=== PATIENT | female | born 1960 ===

== ENCOUNTER → 2018-09-28 | Outpatient (CLI) | payer BC | LOC: WI 09:33 | PROVIDERS: ATTEND Nurse Practitioner Family | DX: Z12.31 Encounter for screening mammogram for malignant neoplasm of breast (principal) ==

== ENCOUNTER → 2018-10-18 | Outpatient (CLI) | payer BC ==
--- NOTE | 2018-10-18 10:15 | WOMENS IMAGING REPORT ---
EXAM DESCRIPTION: RIGHT DIAGNOSTIC MAMMO W/CAD; U/S BREAST UNILAT LIMITED COMPLETED DATE/TIME: 10/18/2018 9:12 am; 10/18/2018 9:53 am REASON FOR STUDY: R92.2 INCONCLUSIVE MAMMOGRAM; RT BREAST R92.2 R92.2 INCONCLUSIVE MAMMOGRAM COMPARISON: 06/28/2016, 09/28/2018 EXAM PARAMETERS: Cone compression exaggerated craniocaudal and mediolateral oblique images of the ri ght breast recorded with digital acquisition. Right whole breast 90 mediolateral view. Right breast ultrasound was also performed. Read with the assistance of CAD. .[facility] - [employer] Version 9.2 LIMITATIONS: None. FINDINGS: BREAST LATERALITY: Right MASSES: At the 11 o'clock position, 8 to 9 cm from the nipple, a small irregular spiculated mass is p resent measuring about 6 to 7 mm in diameter. There is associated architectural distortion. No calc ifications. A 4 mm upper outer quadrant intramammary lymph node is present with central hilar fat and well circum scribed margins. CALCIFICATIONS: No new or suspicious calcifications. ARCHITECTURAL DISTORTION: None. DEVELOPING DENSITY: None. ASYMMETRY: None noted. OTHER: No other significant findings. Right breast ultrasound: The right breast and right axilla were imaged with ultrasound. At the 11 o'clock position, 8 to 9 cm from the nipple a 6 to 7 mm hypoechoic mass with acoustic absor ption and ill-defined margins is present suspicious for malignancy. Ultrasound-guided core biopsy wi th post biopsy clip placement and immediate post procedure follow-up CC, XCC, 90 mediolateral and ML O view mammograms are recommended. (BI-RADS 5). Ultrasound of the right upper outer quadrant and axilla demonstrate a 4 mm, 9 mm, and 12 mm lymph nod e. These have normal cortical thickness and central hilar fat. IMPRESSION: Subcentimeter malignant appearing nodule 11 o'clock position right breast, 8 to 9 cm fro m the nipple better visualized on ultrasound than mammography. This is highly suspicious for maligna ncy, ultrasound-guided core biopsy with post biopsy clip placement and additional follow-up post proc edure mammograms recommended ASSESSMENT: BIRADS 5: HIGHLY SUGGESTIVE OF MALIGNANCY. BIOPSY SHOULD BE PERFORMED IN THE ABSENCE OF C LINICAL CONTRA-INDICATION. BREAST DENSITY: c. The breasts are heterogeneously dense, which may obscure small masses. BIRAD: 5 Highly suggestive of malignancy. Biopsy should be performed in the absence of clinical cont ra-indication. RECOMMENDATION: RECOMMENDED FOLLOW UP: Right breast ultrasound-guided biopsy with post biopsy clip p lacement and follow-up post procedure mammograms. SPECIFIC INTERVENTION/IMAGING/CONSULTATION RECOMMENDED:As above COMMUNICATION:These findings were discussed directly with the patient at the time of encounter. These findings were also discussed Rima Johnson, 0930 hours 10/18/2018. COMMENT: The patient has been notified of the results by letter per [place] requirements. Additional no tification policies are in place for contacting patient with suspicious or incomplete findings. Quality ID #[id number]: The [employer] recommends an annual screening mammogram for women aged 40 years or over. This facility utilizes a reminder system to ensure that all patients receive reminder letters, and/or direct phone calls for appointments. This includes reminders for routine scr eening mammograms, diagnostic mammograms, or other Breast Imaging Interventions when appropriate. Th is patient will be placed in the appropriate reminder system. TECHNICAL DOCUMENTATION: FINDING NUMBER: (1) ASSESSMENT: (1) JOB ID: [id number] [employer]- All Rights Reserved Reading location - IP/workstation name: [email or web address]
== END ==
LOC: WI 09:02
PROVIDERS: ATTEND Nurse Practitioner Family
DX: R92.2 Inconclusive mammogram (principal)
CPT/HCPCS: 76642